=== PATIENT | male | born 1980 | race Caucasian/White ===

== ENCOUNTER 2017-09-28 19:34 | Day surgery (SDC) | payer BC ==
[~2017-09-28] VITALS: Ht 172.7 cm; Wt 81.5 kg
[2017-09-28] MEDS ORDERED: JANUVIA100 MG PO (19:46)
[2017-09-28] MEDS ORDERED: SERTRALINE HCL50 MG PO (19:46)
[2017-09-28] MEDS ORDERED: LOSARTAN POTASS25 MG PO (19:46)
[2017-09-28] MEDS ORDERED: METFORMIN HCL500 M1 PO (19:47)
[2017-09-28] MEDS ORDERED: ASPIRIN81 M2 PO (19:47)
[2017-09-28 20:23] LABS: HEMATOCRIT 41.7 % (38.0-50.0); HEMOGLOBIN 14.2 G/DL (12.5-16.6); MCH 28.5 PG (29.0-34.0); MCHC 34.1 G/DL (30.0-36.0); MCV 83.7 FL (86-99); PLATELET COUNT 267 K/uL (156-360); RBC DIS.WIDTH-SD 39.9 % (39-53); RED BLOOD COUNT 4.98 M/uL (4.00-5.50); WHITE BLOOD COUNT 10.6 K/uL (4.1-10.2)
[2017-09-28 20:30] LABS: CHLORIDE 107 mEq/L (99-109); POTASSIUM 3.9 mEq/L (3.7-5.4); SODIUM 141 mEq/L (136-147)
[2017-09-28 20:32] LABS: GLUCOSE 155 mg/dL (70-99)
[2017-09-28 20:35] LABS: CREATININE 1.3 mg/dL (0.6-1.3); GFR ESTIMATE (CALCULATED) > 59 mL/min/ (58.99-99999)
[2017-09-28 20:36] LABS: UREA NITROGEN (BUN) 17 mg/dL (9-23)
[2017-09-28] MEDS ORDERED: FENOFIBRATE160 M1 PO (20:56)
[2017-09-28 21:12] VITALS: BP 130/87
== END 2017-09-28 22:45 | disposition home or self-care (01) ==
LOC: EME → EDBD 19:34 → EME 21:12 → SDC 21:12
PROVIDERS: Emergency Medicine
PROC: 0DC58ZZ Extirpation of Matter from Esophagus, Via Natural or Artificial Opening Endoscopic (ICD-10-PCS; principal; 2017-09-28)
DX: T18.128A Food in esophagus causing other injury, initial encounter (principal); I10 Essential (primary) hypertension; E11.9 Type 2 diabetes mellitus without complications; Z79.84 Long term (current) use of oral hypoglycemic drugs; Z79.82 Long term (current) use of aspirin; Z88.0 Allergy status to penicillin
CPT/HCPCS: 80048; 85027; 99281; 99284; J0330; J1100; J2405; J2765; J7030